=== PATIENT | male | born 1960 | race Caucasian/White ===

== ENCOUNTER 2019-02-25 09:55 | Emergency (ER) | payer MEDICAID ==
[~2019-02-25] VITALS: Ht 172.7 cm; Wt 99.8 kg
[2019-02-25 09:55] VITALS: BP 172/98
--- NOTE | 2019-02-25 09:57 | NUR ---
Patient YANETH NOBLE accompanied by [id number], transferred to bed 4. RN evaluating patient at bedside.
--- NOTE | 2019-02-25 10:00 | NUR ---
Pt placed on luigi hugger at this time.
--- NOTE | 2019-02-25 10:01 | NUR ---
Dr. Gordon is evaluating the patient at bedside.
[2019-02-25] MEDS ORDERED: DEXTROSE 50% 50 ML SYR IVP ONE (10:05)
[2019-02-25] MEDS ORDERED: GLUCAGON 1 MG VIAL IM ONE (10:05)
--- NOTE | 2019-02-25 10:21 | NUR ---
Dr. Gordon is re-evaluating the patient at bedside.
[2019-02-25 10:38] LABS: BASOPHILS % (AUTO) 0.4 % (0.0-2.0); EOSINOPHILS % (AUTO) 0.2 % (0.0-4.0); HEMATOCRIT 39.4 % (36-52); HEMOGLOBIN 13.3 g/dL (12.0-18.0); LYMPHOCYTES # (AUTO) 0.9 K/uL (2.0-11.5); LYMPHOCYTES % (AUTO) 8.5 % (20.5-51.1); MEAN CORPUSCULAR HEMOGLOBIN 33 pg (27-31); MEAN CORPUSCULAR HGB CONC 34 g/dL (33-37); MEAN CORPUSCULAR VOLUME 97.4 fL (80-94); MONOCYTES # (AUTO) 0.5 K/uL (0.8-1.0); MONOCYTES % (AUTO) 4.5 % (1.7-9.3); NEUTROPHILS # (AUTO) 9.4 K/uL (1.8-7.7); NEUTROPHILS % (AUTO) 86.4 % (42.2-75.2); PLATELET COUNT (AUTO) 200 K/uL (140-450); RED BLOOD CELL COUNT(AUTO) 4.05 MIL/uL (4.20-6.10); RED CELL DISTRIBUTION WIDTH 14.2 % (11.6-13.7); WHITE BLOOD COUNT (AUTO) 10.8 K/uL (4.8-10.8)
--- NOTE | 2019-02-25 10:40 | NUR ---
PT BIBA WITH C/O ALOC, BLOOD GLUCOSE WAS 39 ON SCENE. RECHECKED BLOOD GLUCOSE 31. PT RECIEVED DEXTROSE 50 PER MD ORDER. PT SKIN IS COOL AND CLAMY,BEAR HUGGER APPLIED. PT IS AAOX1 TO NAME, SPEECH IS MUMBLED. UNABLE TO ACCESS GAIT AT THIS TIME. HR IS EVEN AND REGULAR. PT DOES NOT PRESENT IN PAIN AT THIS TIME. HOB ELEVATED, BED RAILS UP X 2 FOR PT SAFETY, BED DOWN IN LOWEST POSITION. ER MD AWARE OF PT STATUS. ALLERGY: UNOBTAINABLE HX: HTN, DM RX: LISINOPRIL, INSULIN
--- NOTE | 2019-02-25 10:41 | NUR ---
aeronautical engineering technologist at bedside.
[2019-02-25] MEDS ORDERED: METF500T PO (10:46)
[2019-02-25] MEDS ORDERED: LORA10TA19 PO (10:46)
[2019-02-25] MEDS ORDERED: GABA300C PO (10:46)
[2019-02-25] MEDS ORDERED: BENZ-196 PO (10:46)
[2019-02-25] MEDS ORDERED: ATOR40TA PO (10:46)
[2019-02-25] MEDS ORDERED: ATEN50TA8 PO (10:46)
[2019-02-25] MEDS ORDERED: IBUP-2213 PO (10:46)
[2019-02-25] MEDS ORDERED: LISI-420 PO (10:46)
[2019-02-25] MEDS ORDERED: INSU100I7 SQ (10:46)
[2019-02-25] MEDS ORDERED: AZIT250T3 PO (10:47)
[2019-02-25 10:56] LABS: ALBUMIN 3.4 g/dL (3.4-5.0); ANION GAP 12.8 (8-16); CARBON DIOXIDE 27.6 mmol/L (21-32); CREATININE 0.6 mg/dL (0.7-1.3); POTASSIUM 4.4 mmol/L (3.5-5.1); TOTAL BILIRUBIN 0.5 mg/dL (0.0-1.0)
--- NOTE | 2019-02-25 11:05 | NUR ---
PT IS AWAKE AND AAOX4 AND PRESENTS WITH A CLEAR SPEECH. PT STATES THAT HE DOESNT REMEMBER WHAT HAPPENED LAST NIGHT. PT STATES THAT HE REMEMBERS HAVING A 2 24 OZ BUDWEISER BEERS AND BEING "BY THE MALL". PT DENIES ANY DRUG USE. PT BP, HR, AND RR ARE STABLE. BEAR HUGGER STILL IN PLACE TO INCREASE BODY TEMP. PT POSITIONED FOR COMFORT. WILL CONTINUE TO MONITOR.
--- NOTE | 2019-02-25 11:11 | NUR ---
PT STATES THAT HE IS UNABLE TO PROVIDE URINE SAMPLE AT THIS TIME.
[2019-02-25] MEDS ORDERED: BLOOD GLUCOSE MONITORING 1 DEV DEV FS ONE ×2 (11:40→13:10)
--- NOTE | 2019-02-25 12:37 | NUR ---
[facility] called and tray will be delivered in 10 minutes.
--- NOTE | 2019-02-25 12:54 | NUR ---
Pt provided with lunch tray.
--- NOTE | 2019-02-25 13:01 | NUR ---
Dr. Gordon is evaluating the patient at bedside.
--- NOTE | 2019-02-25 13:37 | NUR ---
PT POSITIONED FOR COMFORT. NO DISTRESS NOTED, WILL CONTINUE TO MONITOR.
--- NOTE | 2019-02-25 14:05 | NUR ---
PT STATES THAT HE IS UNABLE TO PROVIDE A URINE SAMPLE AT THIS TIME.
--- NOTE | 2019-02-25 16:01 | NUR ---
DPatient discharged with v/s stable. Written and verbal after care instructions given and explained. Patient verbalized understanding. Ambulatory with steady gait. All questions addressed prior to discharge. Advised to follow up with PMD.
[2019-02-25 16:02] VITALS: BP 124/71
--- NOTE | 2019-02-25 16:02 | NUR ---
PT PROVIDED WITH A MEAL AND A LIST OF RESOURCES UPON DISCHARGE.
== END 2019-02-25 16:01 | disposition home or self-care (01) ==
LOC: EDBD 09:55 → MED 09:55
DX: E11.649 Type 2 diabetes mellitus with hypoglycemia without coma (principal); I10 Essential (primary) hypertension; Z79.2 Long term (current) use of antibiotics; Z79.899 Other long term (current) drug therapy
CPT/HCPCS: 71045; 80053; 82948; 83690; 85025; 93005; 96374; 99284; G0482; Q0092

== ENCOUNTER 2019-05-11 17:48 | Emergency (ER) | payer MEDICAID ==
[~2019-05-11] VITALS: Ht 168.9 cm; Wt 98.0 kg
[~2019-05-11 17:48] MED LIST: ATEN50TA8 PO; ATOR40TA PO; AZIT250T3 PO; BENZ-196 PO; GABA300C PO; IBUP-2213 PO; INSU100I7 SQ; LISI-420 PO; LORA10TA19 PO; METF500T PO
[2019-05-11 17:53] VITALS: BP 143/69
--- NOTE | 2019-05-11 19:22 | NUR ---
Pt ambulated to bed 4.
--- NOTE | 2019-05-11 19:45 | NUR ---
58 Y/O MALE PRESENTS TO ED, C/O COLD LIKE SYMPTOMS. PT STATES HAVING BODY ACHES SINCE MONDAY ALONG WITH FEVER. PT TOOK MOTRIN BUT WITH LITTLE RELIEF. PT C/O NAUSEA AND VOMITING; LAST EPISODE WAS 45 MINUTES PRIOR COMING TO ED. PT HAS DRY COUGH; LUNG SOUNDS BILAT CLEAR. NO SOB/DIFFICULTY BREATHING NOTED. PT DENIES ANY CHEST PAIN. PT VSS. ERMD AWARE. WILL CONTINUE TO MONITOR.
--- NOTE | 2019-05-11 19:48 | NUR ---
URINE COLLECTED AT THIS TIME
[2019-05-11 21:15] LABS: APPEARANCE,URINE CLEAR (CLEAR); BILIRUBIN,URINE NEGATIVE (NEGATIVE); BLOOD, URINE NEGATIVE (NEGATIVE); COLOR,URINE YELLOW (YELLOW); LEUKOCYTE ESTERASE ,URINE NEGATIVE (NEGATIVE); NITRITE, URINE NEGATIVE (NEGATIVE); UGLUCOSE 3+ (NEGATIVE)
[2019-05-11] MEDS ORDERED: NACL 0.9% 2,000 ML IV ONE (21:15)
--- NOTE | 2019-05-11 21:47 | NUR ---
LAB AT BEDSIDE DRAWING BLOOD
[2019-05-11 22:00] LABS: BASOPHILS # (AUTO) 0.1 K/uL (0.00-0.22); BASOPHILS % (AUTO) 1.2 % (0.0-2.0); EOSINOPHILS # (AUTO) 0.1 K/uL (0-0.4); EOSINOPHILS % (AUTO) 2.5 % (0.0-4.0); HEMATOCRIT 32.2 % (36-52); HEMOGLOBIN 10.8 g/dL (12.0-18.0); LYMPHOCYTES # (AUTO) 1.6 K/uL (2.0-11.5); LYMPHOCYTES % (AUTO) 36.1 % (20.5-51.1); MEAN CORPUSCULAR HEMOGLOBIN 33 pg (27-31); MEAN CORPUSCULAR HGB CONC 34 g/dL (33-37); MEAN CORPUSCULAR VOLUME 97.7 fL (80-94); MONOCYTES # (AUTO) 0.4 K/uL (0.8-1.0); NEUTROPHILS # (AUTO) 2.2 K/uL (1.8-7.7); NEUTROPHILS % (AUTO) 50.2 % (42.2-75.2); PLATELET COUNT (AUTO) 164 K/uL (140-450); RED CELL DISTRIBUTION WIDTH 13.8 % (11.6-13.7); WHITE BLOOD COUNT (AUTO) 4.4 K/uL (4.8-10.8)
[2019-05-11 22:13] LABS: MAGNESIUM 1.8 mg/dL (1.8-2.4); PHOSPHORUS 4.3 mg/dL (2.5-4.9)
[2019-05-11 22:23] LABS: CARBON DIOXIDE 23.5 mmol/L (21-32); CREATININE 0.8 mg/dL (0.7-1.3); POTASSIUM 4.5 mmol/L (3.5-5.1)
[2019-05-11] MEDS ORDERED: INSULIN REGULAR, HUMAN 100 UNIT/ML VIAL SUBQ STA (22:43)
[2019-05-11] MEDS ORDERED: ACETAMINOPHEN 325 MG TAB PO ONE (22:45)
[2019-05-12] MEDS ORDERED: INSULIN REGULAR, HUMAN 100 UNIT/ML VIAL SUBQ STA (00:06)
[2019-05-12] MEDS ORDERED: ACETAMINOPHEN 325 MG TAB PO STA (00:06)
[2019-05-12 01:43] VITALS: BP 145/77
--- NOTE | 2019-05-12 01:43 | NUR ---
Patient discharged with v/s stable. Written and verbal after care instructions given and explained. Patient alert, oriented and verbalized understanding of instructions. Ambulatory with steady gait. All questions addressed prior to discharge. ID band removed. Patient advised to follow up with PMD. Rx of INSULIN, METFORMIN, ATORVASTATIN given. Patient educated on indication of medication including possible reaction and side effects. Opportunity to ask questions provided and answered.
== END 2019-05-12 01:43 | disposition home or self-care (01) ==
LOC: MED 17:48
DX: E11.65 Type 2 diabetes mellitus with hyperglycemia (principal); I10 Essential (primary) hypertension; Z79.2 Long term (current) use of antibiotics; Z79.899 Other long term (current) drug therapy; Z79.1 Long term (current) use of non-steroidal anti-inflammatories (NSAID); Z88.0 Allergy status to penicillin
CPT/HCPCS: 36415; 80048; 81003; 82948; 83036; 83735; 84100; 85025; 87804; 96360; 96372; 99283; J1815; J7030